=== PATIENT | female | born 1950 | race Caucasian/White ===

== ENCOUNTER 2019-10-08 07:51 | Emergency (ER) | payer MEDICARE ==
[~2019-10-08] VITALS: Ht 165.1 cm; Wt 70.3 kg
--- NOTE | 2019-10-08 08:17 | NUR ---
PT HERE FOR RUQ ABDOMINAL PAIN THAT STARTED WEDNESDAY. DENIES N/V. HAS BEEN ABLE TO EAT, NO LOSS OF APPETITE. RATES PAIN 7/10 AT THIS TIME. STATES SHE HAS NEVER HAD HER GALLBLADDER REMOVED. NADN. AMBULATED WITH STEADY GAIT TO BATHROOM TO PROVIDE URINE SAMPLE AT THIS TIME.
[2019-10-08] MEDS ORDERED: ONDANSETRON 2MG/ML, 2ML ONE (08:29)
[2019-10-08] MEDS ORDERED: MORPHINE SULFATE 4 MG/ML, 1ML ONE (08:29)
[2019-10-08] MEDS ORDERED: MORPHINE SULFATE 4 MG/ML, 1ML IVPush PRN (08:30)
[2019-10-08] MEDS ORDERED: SODIUM CHLORIDE FLUSH 10ML SYR IVF ONE (08:30)
[2019-10-08] MEDS ORDERED: ONDANSETRON 2MG/ML, 2ML IVPush ONE (08:30)
[2019-10-08 08:36] LABS: MICROSCOPIC NOT IND
[2019-10-08 08:39] LABS: CULTURE INDICATED? NO
--- NOTE | 2019-10-08 08:51 | NUR ---
PIV STARTED. PT MEDICATED PER EMAR. GOING TO CT NOW.
[2019-10-08 09:01] LABS: BASOPHILS # (AUTO) 0.03 x10^3/uL (0-0.1); BASOPHILS % (AUTO) 0 % (0-1); EOSINOPHILS # (AUTO) 0.12 x10^3/uL (0-0.4); EOSINOPHILS % (AUTO) 2 % (1-7); LYMPHOCYTES # (AUTO) 1.44 x10^3/uL (1-3.4); LYMPHOCYTES % (AUTO) 24 % (22-44); MD NO; MEAN CORPUSCULAR HEMOGLOBIN 31.3 pg (27.0-34.8); MEAN CORPUSCULAR HGB CONC 32.9 g/dL (32.4-35.8); MEAN CORPUSCULAR VOLUME 95.3 fL (80-100); MEAN PLATELET VOLUME 9.1 fL (7.4-10.4); MONOCYTES # (AUTO) 0.42 x10^3/uL (0.2-0.8); MONOCYTES % (AUTO) 7 % (2-9); NEUTROPHILS # (AUTO) 3.89 x10^3/uL (1.8-6.8); NEUTROPHILS % (AUTO) 66 % (42-75); PLATELET COUNT 246 x10^3/uL (130-400); RED BLOOD COUNT 4.27 x10^6/uL (3.82-5.3); RED CELL DISTRIBUTION WIDTH 14.2 % (9.6-15.2)
[2019-10-08 09:12] LABS: ALANINE AMINOTRANSFERASE 25 U/L (12-78); ALBUMIN 3.8 g/dL (3.4-5.0); ANION GAP 10 mmol/L (5-15); CALCIUM 9.2 mg/dL (8.5-10.1); CHLORIDE 111 mmol/L (98-107)
[2019-10-08 09:15] VITALS: BP 131/77
--- NOTE | 2019-10-08 09:15 | NUR ---
PT BACK FROM RADIOLOGY AND CT. RESTING ON GURNEY. NADN. MIRELESS. STATES PAIN IS BETTER, NOW AT A 5/10. DENIES NEEDS.
[2019-10-08 09:17] LABS: ALKALINE PHOSPHATASE 58 U/L (45-117); BILIRUBIN,TOTAL 0.5 mg/dL (0.2-1.0); TOTAL PROTEIN 7.3 g/dL (6.4-8.2); TROPONIN I < 0.015 ng/mL (0.000-0.045)
--- NOTE | 2019-10-08 09:51 | NUR ---
PA AT BEDSIDE DISCUSSING POC WITH PT NOW.
--- NOTE | 2019-10-08 10:11 | NUR ---
PT PROVIDED WITH INCENTIVE SPIROMETER TAUGHT WITH TEACH BACK METHOD USED. PT AWARE OF DC PLAN. PIV REMOVED. GETTING DRESSED NOW.
== END 2019-10-08 10:27 | disposition home or self-care (01) ==
LOC: ED 09:18
DX: S22.31XA Fracture of one rib, right side, initial encounter for closed fracture (principal); Z85.53 Personal history of malignant neoplasm of renal pelvis; X58.XXXA Exposure to other specified factors, initial encounter; Y93.89 Activity, other specified; Y92.89 Other specified places as the place of occurrence of the external cause; Y99.8 Other external cause status
CPT/HCPCS: 36415; 71046; 74176; 80053; 81003; 83690; 84484; 85025; 85379; 93005; 96374; 96375; 99284; J2270; J2405

== ENCOUNTER 2019-10-10 11:35 | Emergency (ER) | payer MEDICARE ==
[~2019-10-10] VITALS: Ht 165.1 cm; Wt 69.9 kg
--- NOTE | 2019-10-10 12:36 | NUR ---
"I WAS HERE WEDNESDAY. I HAVE A BROKEN RIB AND I AM MISERABLE DESPITE MEDICATIONS. 08/10 PAIN." RIGHT RIB 7TH FRACTURE, NO CREPITIS. NO OBSERVABLE WOB-SOB, POX 95% CLEAR TO BASES/ HOWEVER REPORTS SOB USING INCENTIVE SPIROMETER INSTRUCTED/TAKING PAIN RX ORDERD AND RAN OUT OF PAIN MEDS /ALSO UNABLE TO SEE PCP (NO AVAILABLE APPOINTMENTS) HAS 1 KIDNEY
--- NOTE | 2019-10-10 12:53 | NUR ---
TO RADIOLOGY FOR XRAY
--- NOTE | 2019-10-10 13:05 | NUR ---
REPORT TO REZA CALLES RN PATIENT TRANSFERRED TO ROOM 27
--- NOTE | 2019-10-10 13:09 | NUR ---
RECEIVED REPORT FROM TOVA GRAYSON. ASSUMING CARE OF PT. DR KENNEDY AT BEDSIDE FOR ASSESSMENT. AWAITING RAD RESULTS AT THIS TIME. PT STATES IN PAIN AT THIS TIME, UPDATED. PT RECENTLY ON [facility]CO FOR PAIN BUT HAS RAN OUT
--- NOTE | 2019-10-10 13:13 | NUR ---
assumed care of pt. vss. PERES at bedside for eval.
[2019-10-10] MEDS ORDERED: ONDANSETRON 2MG/ML, 2ML ONE ×2 (13:24→13:30)
[2019-10-10] MEDS ORDERED: MORPHINE SULFATE 4 MG/ML, 1ML ONE ×2 (13:24→13:31)
[2019-10-10] MEDS ORDERED: METHOCARBAMOL 500 MG TABLET ONE (13:30)
[2019-10-10] MEDS: SODIUM CHLORIDE FLUSH 10ML SYR IVF ONE (13:30)
--- NOTE | 2019-10-10 13:37 | NUR ---
ADDITIONAL ORDERS RECEIVED FOR IV MEDS. WILL CONTINUE TO MONITOR
[2019-10-10] MEDS: ONDANSETRON 2MG/ML, 2ML IVPush ONE (13:38)
[2019-10-10] MEDS: METHOCARBAMOL 500 MG TABLET PO ONE (13:38)
[2019-10-10] MEDS: MORPHINE SULFATE 4 MG/ML, 1ML IVPush PRN (13:38)
--- NOTE | 2019-10-10 13:54 | NUR ---
piv est, meds per dec. Dr. Moncada in to speak w/ pt re: xr results and pain management.
[2019-10-10 14:29] VITALS: BP 137/80
== END 2019-10-10 14:31 | disposition home or self-care (01) ==
LOC: ED 14:30
DX: R07.89 Other chest pain (principal)
CPT/HCPCS: 71101; 96374; 96375; 99283; J2270; J2405

== ENCOUNTER 2021-07-14 08:41 | Outpatient (CLI) | payer MEDICARE | END 2021-07-14 23:59 | disposition home or self-care (01) | LOC: CARD 08:41 | PROVIDERS: ATTEND Family Medicine | DX: I49.3 Ventricular premature depolarization (principal); R00.2 Palpitations | CPT/HCPCS: 93225; 93226 ==